=== PATIENT | female | born 1995 | race African-American/Black ===

== ENCOUNTER 2016-07-26 10:14 | Emergency (ER) | payer MEDICAID, OTHER ==
[~2016-07-26] VITALS: Ht 162.6 cm; Wt 59.0 kg
[2016-07-26] MEDS ORDERED: UNKNOWN ABX (10:31)
[2016-07-26] MEDS ORDERED: DIPHENHYDRAMINE 25MG CAPSULE PO ONE (11:15)
[2016-07-26] MEDS ORDERED: PREDNISONE 20MG TABLET PO STA (12:39)
[2016-07-26 13:41] VITALS: BP 120/68
== END 2016-07-26 13:42 | disposition home or self-care (01) ==
LOC: ER 10:15
DX: R07.9 Chest pain, unspecified (principal); I10 Essential (primary) hypertension; F12.10 Cannabis abuse, uncomplicated; L50.9 Urticaria, unspecified
CPT/HCPCS: 71010; 81025; 93005; 99284; J7512; Q0163

== ENCOUNTER 2017-05-12 14:05 | Emergency (ER) | payer OTHER ==
[~2017-05-12] VITALS: Ht 162.6 cm; Wt 60.0 kg
[~2017-05-12 14:05] MED LIST: UNKNOWN ABX
[2017-05-12] MEDS ORDERED: IBUPROFEN 600MG TABLET PO ONE (18:30)
[2017-05-12 18:55] VITALS: BP 119/53
[2017-05-12 19:27] LABS: CLARITY URINE CLOUDY (CLEAR); COLOR URINE YELLOW (YELLOW); KETONES URINE NEGATIVE (NEGATIVE); LEUKOCYTE ESTERASE URINE NEGATIVE (NEGATIVE); NITRITE URINE NEGATIVE (NEGATIVE); OCCULT BLOOD URINE NEGATIVE (NEGATIVE); PH URINE 7.5 (4.5-8.0); PROTEIN URINE NEGATIVE (NEGATIVE); SPECIFIC GRAVITY URINE 1.022 (1.005-1.030)
== END 2017-05-12 19:46 | disposition home or self-care (01) ==
LOC: ER 15:14
DX: S70.02XA Contusion of left hip, initial encounter (principal); F17.200 Nicotine dependence, unspecified, uncomplicated; Y08.89XA Assault by other specified means, initial encounter; Y93.89 Activity, other specified; Y92.89 Other specified places as the place of occurrence of the external cause
CPT/HCPCS: 71101; 81001; 81025; 99285